=== PATIENT | female | born 1985 | race Caucasian/White ===

== ENCOUNTER 2016-08-22 16:06 | Emergency (ER) | payer OTHER, MEDICAID ==
[~2016-08-22] VITALS: Ht 170.2 cm; Wt 58.0 kg
[~2016-08-22 16:06] MED LIST: SERT50 PO; TRAZ50TA4 PO; TRIL150T PO
[2016-08-22 16:10] VITALS: BP 117/72; PULSE 85; RESP 16; TEMP 98.7; O2SAT 100
--- NOTE | 2016-08-22 16:29 | PD ---
HPI Chief Complaint: Musculoskeletal Complaint Time Seen by Provider: 16:28 Travel History International Travel<30 days: No Contact w/Intl Traveler<30days: No Traveled to known affect area: No History of Present Illness HPI 31-year-old female presents the emergency department with injury to the right hand and wrist. Patient states 30 minutes prior to arrival she was trying to his dropped a dog fight between HER 2 dogs. She is unsure how the injury occurred. There is no bite philip or open wounds. It appears the patient sprained her hand and wrist. There is ecchymosis and pain on the palmar aspect. There is no obvious deformity. She has pain with movement of the wrist and hand and is unable to make a fist. She denies numbness or tingling. She is allergic to Ambien and buspirone. PFSH Past Medical History Anxiety: Yes Genitourinary: Yes (Kidney infections) Insomnia: Yes Migraines: Yes : 5 Para: 2 Miscarriage: 2 : 1 Ectopic : Yes Past Surgical History AICD: No Joint Replacement: No Oral Surgery: Yes (AGE 9; TOOTH REMOVED FROM NASAL PASSAGE) Pacemaker: No Other Surgery: Yes (HAD LUMP REMOVED FROM RT TERAN) Social History Alcohol Use: Yes (Occ.) Tobacco Use: Yes (1 PPD) Substance Use: No Allergies-Medications (Allergen,Severity, Reaction): Coded Allergies: Ambien (Verified Adverse Reaction, Severe, "stay awake", 08/22/16) Buspirone (Verified Adverse Reaction, Severe, "FEELS BAD", 08/22/16) Reported Meds & Prescriptions Reported Meds & Active Scripts Active Reported Zoloft (Sertraline HCl) 100 Mg Tab 100 Mg PO DAILY Trileptal (Oxcarbazepine) 150 Mg Tab 150 Mg PO DAILY Review of Systems Except as stated in HPI: all other systems reviewed are Neg General / Constitutional: No: Fever Eyes: No: Visual changes HENT: No: Headaches Cardiovascular: No: Chest Pain or Discomfort Respiratory: No: Shortness of Breath Gastrointestinal: No: Abdominal Pain Genitourinary: No: Dysuria Musculoskeletal: No: Pain Skin: No Rash Neurologic: No: Weakness Psychiatric: No: Depression Endocrine: No: Polydipsia Hematologic/Lymphatic: No: Easy Bruising Physical Exam Narrative GENERAL: Patient appears in moderate distress. SKIN: Warm and dry. Normal color. Normal turgor. There is ecchymosis to the palmar surface of the second third and fourth digits as well as the central palm and volar wrist of the right hand. No other deformities are noted. HEAD: Atraumatic. Normocephalic. EYES: Pupils equal and round. No scleral icterus. No injection or drainage. ENT: No nasal bleeding or discharge. Mucous membranes pink and moist. NECK: Trachea midline. Supple and nontender. CARDIOVASCULAR: Regular rate and rhythm. RESPIRATORY: No accessory muscle use. Clear to auscultation. Breath sounds equal bilaterally. MUSCULOSKELETAL: Extremities without clubbing, cyanosis, or edema. No obvious deformities. Pain in the right hand and wrist as stated. Decreased range of motion in the right wrist and hand secondary to pain. No obvious deformity. No pain in the right elbow or upper arm. No pain in the proximal right forearm. No other significant findings are noted. NEUROLOGICAL: Awake and alert. No obvious cranial nerve deficits. Motor grossly within normal limits. Five out of 5 muscle strength in the arms and legs. Normal speech. PSYCHIATRIC: Appropriate mood and affect; insight and judgment normal. Data Data Last Documented VS Vital Signs Date Time Temp Pulse Resp B/P Pulse Ox O2 Delivery O2 Flow Rate FiO2 08/22/16 16:10 98.7 85 16 117/72 100 Orders Hand, Complete ([id number]) (08/22/16 16:31) Wrist, Complete ([id number]) (08/22/16 16:31) Ice/Cold Pack (08/22/16 16:31) Ketorolac Inj (Toradol Inj) (08/22/16 16:45) Splint Or Brace Apply/Monitor (08/22/16 17:32) [facility] Medical Decision Making Medical Screen Exam Complete: Yes Emergency Medical Condition: Yes Differential Diagnosis Right hand sprain. Right hand contusion. Right wrist sprain. Possible fracture. Narrative Course Patient is medically stable at time of exam. Patient is given Toradol 60 mg IM. X-rays are obtained of the right wrist and hand. X-rays of the right hand and wrist are negative for fracture or dislocation per radiologist. Patient is placed in a volar wrist and hand splint to include fingers for comfort. She should maintain the splint as needed for the next week. Patient is given ibuprofen 600 mg 4 times a day #40. Patient should use ice and rest the area until better. Patient can take Tylenol as well as needed for pain. Patient follow with her primary care physician or return to emergency department as needed. Diagnosis Primary Impression: Sprain of hand, right Qualified Code: S63.91XA - Sprain of hand, right, initial encounter Additional Impressions: Sprain of right wrist Qualified Code: S63.501A - Sprain of right wrist, initial encounter Contusion Qualified Code: S60.221A - Contusion of right hand, initial encounter Referrals: Primary Care Physician Patient Instructions: Contusion in Adults (ED), General Instructions, Hand Sprain (ED), Wrist Sprain (ED) Additional Instructions: X-rays of the right hand and wrist are negative for fracture or dislocation per radiologist. Patient is placed in a volar wrist and hand splint to include fingers for comfort. She should maintain the splint as needed for the next week. Patient is given ibuprofen 600 mg 4 times a day #40. Patient should use ice and rest the area until better. Patient can take Tylenol as well as needed for pain. Patient follow with her primary care physician or return to emergency department as needed. Med/Other Pt SpecificInfo: Prescription(s) given Scripts Ibuprofen 600 Mg [id number] Mg PO Q6H PRN (Pain/Inflammation) #40 TAB Prov:Francine Amaya MD 08/22/16 Disposition: 01 DISCHARGE HOME Condition: Stable Barrett Hicks August 22, 2016 16:28
[2016-08-22] MEDS ORDERED: ZOLO100T PO (16:34)
[2016-08-22] MEDS ORDERED: TRIL150T PO (16:34)
[2016-08-22] MEDS ORDERED: KETOROLAC TROMETHAMINE 60 MG/2 ML (IM) VIAL IM ONE (16:45)
--- NOTE | 2016-08-22 17:26 | RADHPO ---
EXAM DATE/TIME: 08/22/2016 16:41 [facility] COMPARISON: No previous studies available for comparison. INDICATIONS : Right wrist pain. Patient states she injured her wrist hitting her dogs to break them up. MEDICAL HISTORY : None. SURGICAL HISTORY : None. ENCOUNTER: Initial ACUITY: 1 day PAIN SCORE: 8/10 LOCATION: Right wrist. FINDINGS: Three view examination of the right wrist demonstrates no soft tissue swelling, dislocation, or fract ure. The carpal bones are in normal alignment. The joint spaces are maintained. Bony mineralizatio n is normal. CONCLUSION: Unremarkable examination of the right wrist. Luc Maloney Jr., MD on August 22, 2016 at 17:24 Board Certified Radiologist. This report was verified electronically.
--- NOTE | 2016-08-22 17:27 | RADHPO ---
EXAM DATE/TIME: 08/22/2016 16:46 [facility] COMPARISON: No previous studies available for comparison. INDICATIONS : Right hand pain. Patient states she injured her hand hitting her dogs to break up a fight. MEDICAL HISTORY : None. SURGICAL HISTORY : None. ENCOUNTER: Initial ACUITY: 1 day PAIN SCORE: 8/10 LOCATION: Right hand. FINDINGS: Three view examination of the right hand demonstrates no soft tissue swelling, dislocation, or fractu re. The carpal bones appear intact. The interphalangeal and metacarpophalangeal joints are intact. Bony mineralization is normal. CONCLUSION: Unremarkable examination of the right hand. Luc Mlaoney Jr., MD on August 22, 2016 at 17:25 Board Certified Radiologist. This report was verified electronically.
[2016-08-22] MEDS ORDERED: IBUP-232 PO (17:42)
[2016-08-22 17:55] VITALS: BP 118/77
[2016-10-10] MEDS ORDERED: ZOLO100T PO (08:27)
== END 2016-08-22 17:58 | disposition home or self-care (01) ==
LOC: PHED 16:06 → PHEFT 17:58
DX: S63.91XA Sprain of unspecified part of right wrist and hand, initial encounter (principal); S63.501A Unspecified sprain of right wrist, initial encounter; S60.221A Contusion of right hand, initial encounter; X50.9XXA Other and unspecified overexertion or strenuous movements or postures, initial encounter; Y93.89 Activity, other specified; F17.219 Nicotine dependence, cigarettes, with unspecified nicotine-induced disorders
CPT/HCPCS: 29105; 73110; 73130; 96372; 99283; J1885